=== PATIENT | male | born 1985 | race Caucasian/White ===

== ENCOUNTER → 2016-10-04 | Day surgery (SDC) | payer OTHER ==
[~2016-10-04] VITALS: Ht 182.9 cm; Wt 97.5 kg
[~2016-10-04] MED LIST: BUPIVACAINE HCL 0.25% 30 ML VIAL As Ordered ONE; CELE1CAP9 PO; GLYCOPYRROLATE INJ 0.2 MG/ML 2 ML VIAL As Ordered ONE; HYDR25T PO; KETOROLAC 30 MG/ML VIAL (J1885) IV PRN; KETOROLAC 60 MG/2 ML VIAL (J1885) As Ordered ONE; LIDOCAINE 1% SDV INJ 30 ML VIAL As Ordered ONE; LIDOCAINE 2% INJ 100 MG/5 ML SYRINGE As Ordered ONE; LR 1,000 ML IV ONE; LR 1,000 ML IV SCH; MIDAZOLAM INJ 2 MG/2 ML VIAL (J2250) As Ordered ONE; MORPHINE 2 MG/ML 1ML SYRINGE As Ordered ONE; NEOSTIGMINE 1MG/ML 5 ML SYRINGE (J2710) As Ordered ONE; ONDANSETRON 4MG/2ML VIAL (J2405) As Ordered ONE; ONDANSETRON 4MG/2ML VIAL (J2405) IV PRN; OXYC1TAB23 PO; PERCOCET 5MG/325MG TAB PO PRN; PROPOFOL 200 MG/20 ML VIAL As Ordered ONE; ROCURONIUM BROMIDE 50 MG/5 ML VIAL As Ordered ONE; dexameTHASONE 4 MG/ML 1ML VIAL (J1100) As Ordered ONE; fentaNYL 100 MCG/2 ML INJECTION (J3010) As Ordered ONE; fentaNYL 250 MCG/5 ML INJECTION (J3010) As Ordered ONE
--- NOTE | 2016-10-04 11:39 | ROOPDOC ---
[facility] Report Of Operation Report of Operation DATE OF PROCEDURE: 10/04/16 PREPROCEDURE DIAGNOSES: Umbilical hernia POSTPROCEDURE DIAGNOSES: Umbilical hernia containing preperitoneal fat PROCEDURE: Laparoscopic and local hernia repair placement of 9 cm parietex composite mesh SURGEON: Rick Sanchez MD TECHNOLOGY METHODOLOGY CONSULTANT: Mac Coronado MD ANESTHESIA: Gen. anesthesia ESTIMATED BLOOD LOSS: Approximately [10] mL. COMPLICATIONS: [none]. REMARKS: [Small 1 1/2-2 cm fascial defect noted after dissecting the preperitoneal fat that was bulging through the defect]. PROCEDURE NOTE: . Patient was brought to the operating room for repair of his umbilical hernia that he noted a few months prior with mild discomfort. DESCRIPTION OF PROCEDURE: . Patient was given Ancef 2 g preoperatively for prophylaxis. Patient was brought to the operating room, placed supine on the table. Sequential compression device placed for DVT prophylaxis. General endotracheal anesthesia started. The abdomen prepped and draped in usual sterile fashion. After a surgical timeout, we began our surgery. Entry into the abdomen done via a left upper quadrant subcostal incision. A Veress needle inserted into the abdomen. Proper placement confirmed with saline drop technique. CO2 insufflation done to a pressure of 15 mmHg. Using the same incision 5 mm Visiport was placed under direct vision of the laparoscope. On entry, the bulge noted externally superior and to the right of the umbilical cleft was located. This was not reducible back into the abdomen. A second working port was placed over the left lower quadrant area. The contents of the hernia dissected free. The hernia sac was reduced and dissected free. The surrounding tissues were freed from the hernia edge. The hernia edge measures . I chose a 9 cm Wayne Chintan composite round mesh. Transabdominal sutures placed at this 6 and 12 oclock position. This is rolled tightly and placed into the abdomen. This was positioned to Center on the hernia defect. Transabdominal suture passer used to retrieve the sutures to position the mesh. Once adequate overlap of the mesh to the hernia defect was ensured. 2 rows of secure strap Vicryl tacks then placed to secure the mesh to the abdominal wall. The outer tacks were at the edge of the mesh and the inner tacks were just outside of the hernia defect.We inspected the abdomen for hemostasis. Surveyed the abdomen for any injury. Once assured, the abdomen was desufflated and all ports removed. Skin incisions closed with 4-0 Monocryl subcuticular fashion. Dermabond used for dressing. Patients promptly awake and extubated by Dr. lucio in stable. All counts of sponges and instruments verified to be correct. RICK SANCHEZ MD October 04, 2016 11:39
[2016-10-04] MEDS: fentaNYL 100 MCG/2 ML INJECTION (J3010) IV PRN ×4 (11:42→12:03)
[2016-10-04] MEDS: MORPHINE 2 MG/ML 1ML SYRINGE IV PRN ×2 (12:25→13:35)
[2016-10-04 14:30] VITALS: BP 136/69
== END ==
LOC: M SDC 08:45
PROVIDERS: ATTEND Surgery
DX: K42.9 Umbilical hernia without obstruction or gangrene (principal); Z88.5 Allergy status to narcotic agent
CPT/HCPCS: 49652; C1781; J0690; J1100; J1885; J2250; J2405; J2710; J3010

== ENCOUNTER 2016-10-17 15:38 | Emergency (ER) | payer OTHER ==
[~2016-10-17] VITALS: Ht 182.9 cm; Wt 94.3 kg
[~2016-10-17 15:38] MED LIST changes: -BUPIVACAINE HCL 0.25% 30 ML VIAL As Ordered ONE; -GLYCOPYRROLATE INJ 0.2 MG/ML 2 ML VIAL As Ordered ONE; -KETOROLAC 30 MG/ML VIAL (J1885) IV PRN; -KETOROLAC 60 MG/2 ML VIAL (J1885) As Ordered ONE; -LIDOCAINE 1% SDV INJ 30 ML VIAL As Ordered ONE; -LIDOCAINE 2% INJ 100 MG/5 ML SYRINGE As Ordered ONE; -LR 1,000 ML IV ONE; -LR 1,000 ML IV SCH; -MIDAZOLAM INJ 2 MG/2 ML VIAL (J2250) As Ordered ONE; -MORPHINE 2 MG/ML 1ML SYRINGE As Ordered ONE; -NEOSTIGMINE 1MG/ML 5 ML SYRINGE (J2710) As Ordered ONE; -ONDANSETRON 4MG/2ML VIAL (J2405) As Ordered ONE; -ONDANSETRON 4MG/2ML VIAL (J2405) IV PRN; -PERCOCET 5MG/325MG TAB PO PRN; -PROPOFOL 200 MG/20 ML VIAL As Ordered ONE; -ROCURONIUM BROMIDE 50 MG/5 ML VIAL As Ordered ONE; -dexameTHASONE 4 MG/ML 1ML VIAL (J1100) As Ordered ONE; -fentaNYL 100 MCG/2 ML INJECTION (J3010) As Ordered ONE; -fentaNYL 250 MCG/5 ML INJECTION (J3010) As Ordered ONE
[2016-10-17] MEDS ORDERED: VITA100T98 (15:52)
[2016-10-17] MEDS ORDERED: TRAM50TA2 PO (15:52)
[2016-10-17] MEDS ORDERED: ZOMI5TAB2 (15:52)
[2016-10-17] MEDS ORDERED: FISH1000 (15:52)
[2016-10-17] MEDS ORDERED: VITA-122 (15:52)
[2016-10-17] MEDS ORDERED: diphenhydrAMINE INJ 50MG/ML VIAL (J1200) IV STA (16:23)
[2016-10-17] MEDS ORDERED: NS 1,000 ML IV ONE (16:30)
[2016-10-17] MEDS ORDERED: METOCLOPRAMIDE INJ 10MG/2ML VIAL (J2765) IV ONE (16:30)
[2016-10-17] MEDS ORDERED: KETOROLAC 30 MG/ML VIAL (J1885) IV ONE (16:30)
[2016-10-17 17:28] VITALS: BP 123/72
== END 2016-10-17 17:32 | disposition home or self-care (01) ==
LOC: M ED 16:26
DX: G43.909 Migraine, unspecified, not intractable, without status migrainosus (principal); Z88.5 Allergy status to narcotic agent; Z79.899 Other long term (current) drug therapy
CPT/HCPCS: 96374; 96375; 99283; J1200; J1885; J2765

== ENCOUNTER → 2016-12-25 | Outpatient (CLI) | payer OTHER ==
[~2016-12-25] MED LIST changes: +CONRAY-43 43% 50ML VIAL (Q9960) As Ordered ONE; +FISH1000; +HYDR-3363 PO; -HYDR25T PO; +TRAM50TA2 PO; +VITA-122; +VITA100T98; +ZOMI5TAB2
--- NOTE | 2016-12-25 18:46 | REP ---
Right hip arthrogram The procedure was performed under the direction supervision of Dr. Grady. The benefits and risks including but not limited to pain, infection, bleeding and anaphylaxis were explained to the patient and informed consent was obtained. The right femoral neck was localized using fluoroscopic guidance. Skin was prepped and draped in a sterile fashion. 1% lidocaine was used as a local anesthetic. Using fluoroscopic guidance a 22 gauge spinal needle was inserted and advanced to the femoral neck. 0.5 ml of Conray 43 was injected to verify placement. 7 ml of a solution containing 20 ml of sterile saline and 0.15 ml of ProHance was injected into the joint. The needle was removed and the patient was taken to MRI for postprocedural imaging. The the patient tolerated the procedure well and there were no immediate complications. 2 seconds of fluoro time was utilized for this procedure. Reviewed by ANGELA Fernandes 12/25/2016 02:37 PSigned by Ángel Grady MD 12/25/2016 06:37 P
--- NOTE | 2016-12-25 19:19 | REP ---
MRI RIGHT HIP WITHOUT WITH CONTRAST ARTHROGRAM: 12/25/2016: Clinical history: Cam type impingement right hip, rule out labral tear. Technique: Coronal whole pelvic T1 and T2 STIR images with post gadolinium fat suppressed T1 coronal, axial, sagittal and oblique axial images with coronal and axial fat suppressed T2 sequences as well. Findings: No prior study. Marrow signal in the lower lumbar, sacral iliac, acetabular ischial and hip marrow along with the proximal femoral shafts were homogeneous and symmetric. There is no visible bone bruise or fracture or destructive lesion. No AVN. SI joints grossly intact. Bladder partially filled without abnormality. No pelvic mass identified. Intrinsic and extrinsic pelvic hip proximal thigh and buttock musculature symmetric and grossly unremarkable. No definite hip joint effusion. The coronal images slight undermining of the labrum and a paralabral sulcus noted. Slight contour bulge at the junction of the femoral head and neck anterior superiorly in the right hip which may indicate cam type deformity which would make the patient prone to labral injury. There is no loose body, chondromalacia, AVN or fracture. I see no evidence for iliopsoas or obturator internus tendonitis. The hamstring tendon insertions were unremarkable. Impression: 1. Subtle contour bulge at the junction of femoral head and neck superiorly and anteriorly that may reflect cam type deformity which predisposes to impingement and labral injury. 2. Paralabral sulcus on the coronal images and some mild undermining of the anterior superior labrum which may reflect a labral degeneration or small labral tear. No loose body, bone bruise, fracture, chondromalacia or AVN. There is no fluid collection at the greater trochanter to suggest trochanteric bursitis. Signed by Ángel Grady MD 12/25/2016 07:25 P
== END ==
LOC: M RADPRO 06:59
PROVIDERS: ATTEND Physician Assistant Medical
DX: M25.851 Other specified joint disorders, right hip (principal)
CPT/HCPCS: 27093; 73723; 77002; A9576; Q9960

== ENCOUNTER 2018-07-10 01:07 | Emergency (ER) | payer OTHER ==
[~2018-07-10] VITALS: Ht 182.9 cm; Wt 95.5 kg
[~2018-07-10 01:07] MED LIST changes: -CONRAY-43 43% 50ML VIAL (Q9960) As Ordered ONE
[2018-07-10] MEDS ORDERED: ONDANSETRON 4MG/2ML VIAL (J2405) IV ONE (01:45)
[2018-07-10] MEDS ORDERED: KETOROLAC 30 MG/ML VIAL (J1885) IV ONE (01:45)
[2018-07-10 02:12] LABS: BASO # 0.1 10^3/uL (0.0-0.2); BASO % 0.8 % (0.0-1.0); EOS # 0.3 10^3/uL (0.0-0.50); EOS % 4.5 % (0.0-3.0); HEMATOCRIT 42.3 % (42.0-52.0); HEMOGLOBIN 14.2 g/dl (13.5-17.5); LYMPH # 3.1 10^3/uL (1.5-4.5); LYMPH % 40.4 % (24.0-44.0); MEAN CORPUSCULAR HEMOGLOBIN 32.7 pg (27.0-33.0); MEAN CORPUSCULAR HGB CONC 33.6 g/dl (32.0-36.5); MEAN CORPUSCULAR VOLUME 97.5 fl (80.0-96.0); MONO # 0.7 10^3/uL (0.0-0.8); NEUTROPHILS # 3.4 10^3/uL (1.8-7.7); PLATELET COUNT, AUTOMATED 237 10^3/uL (150-450); RED BLOOD COUNT 4.34 10^6/uL (4.30-6.10); WHITE BLOOD COUNT 7.6 10^3/uL (4.0-10.0)
[2018-07-10 02:33] LABS: ALT/SGPT 22 U/L (12-78); BILIRUBIN,DIRECT 0.1 MG/DL (0.0-0.2); BILIRUBIN,TOTAL 0.4 MG/DL (0.2-1.0); BLOOD UREA NITROGEN 30 MG/DL (7-18); CALCIUM LEVEL 8.7 MG/DL (8.5-10.1); CARBON DIOXIDE LEVEL 25 MEQ/L (21-32); CHLORIDE LEVEL 106 MEQ/L (98-107); CREATININE FOR GFR 1.12 MG/DL (0.70-1.30); GLOMERULAR FILTRATION RATE > 60.0 (>60); GLUCOSE, FASTING 83 MG/DL (70-100); LIPASE 146 U/L (73-393); POTASSIUM SERUM 3.5 MEQ/L (3.5-5.1); SODIUM LEVEL 142 MEQ/L (136-145); TOTAL PROTEIN 7.6 GM/DL (6.4-8.2)
[2018-07-10] MEDS ORDERED: DULC5TAB PO (02:38)
[2018-07-10] MEDS ORDERED: BISACODYL 5 MG TAB PO ONE (02:45)
[2018-07-10 02:55] VITALS: BP 112/66
--- NOTE | 2018-07-10 07:52 | REP ---
Acute abdominal series four views including PA chest, upright abdomen and two supine views of the abdomen: There are no comparisons. PA chest: Lung hurtado are clear. Cardiac size is normal. The jorgito, mediastinum, skeletal structures are unremarkable. There is no free subdiaphragmatic air. Impression: Negative PA chest. Abdomen, supine upright views: The bowel gas pattern is normal. There are pelvic calcifications, likely phleboliths. There is a 4.5 cm osteochondroma arising from the right iliac wing laterally and skeletal structures are otherwise unremarkable. Impression: Normal bowel gas pattern. 4.5 cm right iliac wing osteochondroma. Electronically Signed by Jose Nieto MD 07/10/2018 07:44 A
--- NOTE | 2018-07-10 11:54 | ED PDOC ---
Post-Departure Follow-Up ft fabrizio rivera faxed formal report of abdominal series for fu Lashell Parkinson MD Jul 10, 2018 11:54
== END 2018-07-10 02:59 | disposition home or self-care (01) ==
LOC: M ED 01:07
DX: R10.9 Unspecified abdominal pain (principal)
CPT/HCPCS: 36415; 74021; 80048; 80076; 83690; 85025; 93041; 96374; 96375; 99284; J1885; J2405

== ENCOUNTER 2019-03-09 17:11 | Emergency (ER) | payer OTHER ==
[~2019-03-09] VITALS: Ht 182.9 cm; Wt 93.2 kg
[~2019-03-09 17:11] MED LIST changes: +DULC5TAB PO
[2019-03-09] MEDS ORDERED: KETOROLAC 60 MG/2 ML VIAL (J1885) IM ONE (19:15)
[2019-03-09] MEDS ORDERED: CYCL10TA PO (19:25)
[2019-03-09] MEDS ORDERED: IBUP-1022 PO (19:25)
[2019-03-09 19:47] VITALS: BP 136/87
== END 2019-03-09 19:48 | disposition home or self-care (01) ==
LOC: M ED 17:11
DX: M54.41 Lumbago with sciatica, right side (principal); Z88.5 Allergy status to narcotic agent
CPT/HCPCS: 96372; 99283; J1885; J3360

== ENCOUNTER 2019-06-16 09:47 | Emergency (ER) | payer OTHER ==
[~2019-06-16] VITALS: Ht 182.9 cm; Wt 99.8 kg
[~2019-06-16 09:47] MED LIST changes: +CYCL10TA PO; +IBUP-1022 PO
[2019-06-16] MEDS ORDERED: NORCO, ANEXSIA 5/325MG TABLET (HYDROcodone/ACETAMINOPHEN) PO ONE (11:30)
--- NOTE | 2019-06-16 12:37 | REP ---
Sacrum and coccyx series: Three views. History: Injury in a fall. Continued pain. Findings: Three views of the sacrum and coccyx show no evidence of sacral or coccygeal fracture or displacement. Presacral soft tissues are not widened. SI joints are unremarkable. Sacral ala appear intact. No pelvic fracture is appreciated. Impression: Negative radiographs of the sacrum and coccyx. Electronically Signed by Sixto Luevano MD 06/16/2019 12:29 P
[2019-06-16] MEDS ORDERED: NORC1TAB7 PO (12:59)
[2019-06-16 13:07] VITALS: BP 126/74
== END 2019-06-16 13:07 | disposition home or self-care (01) ==
LOC: M ED 09:47
DX: S39.92XA Unspecified injury of lower back, initial encounter (principal); W10.8XXA Fall (on) (from) other stairs and steps, initial encounter; Y92.098 Other place in other non-institutional residence as the place of occurrence of the external cause; D55.0 Anemia due to glucose-6-phosphate dehydrogenase [G6PD] deficiency; Z88.6 Allergy status to analgesic agent

== ENCOUNTER 2023-01-08 03:54 | Emergency (ER) | payer OTHER ==
[~2023-01-08] VITALS: Ht 182.9 cm; Wt 90.9 kg
[2023-01-08 03:54] VITALS: TEMP 98.1
[~2023-01-08 03:54] MED LIST changes: +CYCL-707 PO; -CYCL10TA PO; +NORC1TAB7 PO
[2023-01-08] MEDS ORDERED: diphenhydrAMINE 50MG/ML VIAL IV ONE (07:10)
[2023-01-08] MEDS ORDERED: ACETAMINOPHEN 500 MG TAB PO ONE (07:10)
[2023-01-08] MEDS ORDERED: METOCLOPRAMIDE INJ 10MG/2ML VIAL IV ONE (07:10)
[2023-01-08] MEDS ORDERED: NS 1,000 ML IV ONE (07:10)
[2023-01-08 07:39] LABS: BASO # 0.1 10^3/uL (0.0-0.2); BASO % 0.7 % (0.0-1.0); EOS # 0.1 10^3/uL (0.0-0.5); EOS % 0.5 % (0.0-3.0); HEMATOCRIT 41.9 % (42.0-52.0); LYMPH # 1.6 10^3/uL (1.5-5.0); LYMPH % 15.1 % (24.0-44.0); MEAN CORPUSCULAR HEMOGLOBIN 32.3 pg (27.0-33.0); MEAN CORPUSCULAR HGB CONC 33.4 g/dl (32.0-36.5); MEAN CORPUSCULAR VOLUME 96.5 fl (80.0-96.0); MONO # 0.7 10^3/uL (0.0-0.8); MONO % 6.6 % (2.0-8.0); NEUTROPHILS # 8.2 10^3/uL (1.5-8.5); NEUTROPHILS % 76.4 % (36.0-66.0); PLATELET COUNT, AUTOMATED 243 10^3/uL (150-450); RED BLOOD COUNT 4.34 10^6/uL (4.30-6.10); WHITE BLOOD COUNT 10.7 10^3/uL (4.0-10.0)
[2023-01-08 08:08] LABS: BLOOD UREA NITROGEN 14 MG/DL (9-23); CALCIUM LEVEL 9.2 MG/DL (8.5-10.1); CARBON DIOXIDE LEVEL 26 MMOL/L (20-31); CHLORIDE LEVEL 110 MMOL/L (98-107); GLOMERULAR FILTRATION RATE > 60.0 (>60); GLUCOSE, FASTING 107 MG/DL (60-100); POTASSIUM SERUM 4.4 MMOL/L (3.5-5.1); SODIUM LEVEL 143 MMOL/L (136-145)
[2023-01-08 09:27] VITALS: BP 143/93; O2SAT 100
== END 2023-01-08 09:32 | disposition home or self-care (01) ==
LOC: M ED 03:54
DX: G43.909 Migraine, unspecified, not intractable, without status migrainosus (principal)
CPT/HCPCS: 70450; 80048; 85025; 96374; 96375; 99284; J1200; J2765

== ENCOUNTER → 2025-04-15 | Outpatient (CLI) | payer OTHER ==
[~2025-04-15] MED LIST changes: +CELE0.09 PO; -CELE1CAP9 PO; -IBUP-1022 PO; +IBUP600T42 PO
[2025-04-15 10:55] LABS: PLATELET COUNT, AUTOMATED 225 10^3/uL (150-450)
[2025-04-15 11:18] LABS: INR 0.89
== END ==
LOC: M LAB 09:06
PROVIDERS: ATTEND Physician Assistant
DX: Z01.818 Encounter for other preprocedural examination (principal)